=== PATIENT | male | born 1985 ===

== ENCOUNTER 2017-08-21 09:04 | Outpatient (CLI) | payer OTHER ==
[~2017-08-21] VITALS: Ht 177.8 cm; Wt 83.9 kg
== END 2017-08-21 09:25 | disposition home or self-care (01) ==
LOC: OFIC 805 09:04
DX: K21.9 Gastro-esophageal reflux disease without esophagitis (principal); R49.0 Dysphonia; R05 Cough

== ENCOUNTER 2017-10-23 10:29 | Outpatient (CLI) | payer OTHER ==
[~2017-10-23] VITALS: Ht 152.4 cm; Wt 83.9 kg
== END 2017-10-23 10:40 | disposition home or self-care (01) ==
LOC: OFIC 805 10:29
DX: K21.9 Gastro-esophageal reflux disease without esophagitis (principal); F45.8 Other somatoform disorders